=== PATIENT | female | born 1940 | race Caucasian/White ===

== ENCOUNTER → 2017-04-23 | Outpatient (CLI) | payer OTHER ==
[~2017-04-23] MED LIST: AMITRIPTYLINE H50 MG PO; AMITRYPTYLINE PO; AMLODIPINE PO; ASPIRIN ENTERI325 M1 PO; ATIVAN0.5 MG PO; BACTRIM DS TABL1 TA1 PO; FUROSEMIDE40 MG PO; HYDROCODON-ACE1 EACH PO; LASIX PO; LEVOTHYROXINE150 MCG PO; LISINOPRIL10 MG PO; LISINOPRIL20 MG PO; LOPRESSOR PO; MEDI-MECLIZINE25 M1 PO; METFORMIN HCL500 M3 PO; METOPROLOL TAR25 MG PO; NORVASC; PAROXETINE HCL40 M1 PO; PAXIL40 MG PO; PLAVIX PO; POTASSIUM CHLO20 ME1 PO; SIMVASTATIN20 MG PO; SYNTHROID0.15 MG PO; ZOCOR; ZOCOR PO
--- NOTE | ~2017-04-23 | US37 ---
[facility] A Service of [facility] & [facility] RADIOLOGY TEXT RESULTS PATIENT: NATASHA SHEIKH LOCATION: SNIV : 42 UNIT #: [id number] AGE: [address]: Nat Betancourt APRN SEX: F ORDER DR: [id number] [address] [address] [id number] O MR#: [id number] Acc #: [id number] NAME: NATASHA SHEIKH : 1940 SEX: F STUDY DATE/TIME: 04/23/2017 14:49 UNIT: SNIV ROOM: STUDY DESCRIPTION: US Carotid W/Doppler Bilateral Attending Physician: Nat Betancourt A.P.R.N. Referring Physician: Nat Betancourt A.P.R.N. Ordering Physician: Nat Betancourt A.P.R.N. Primary Care Physician: Yobany Mccarthy M.D. MEDICAL IMAGING REPORT This report is preliminary unless electronic signature is present. EXAM Carotid Doppler bilateral 04/23/2017 HISTORY Vertigo, dizziness for 1 week. Memory loss, loss of balance, fainting carotid bruit on physical examination 04/19/2017. Evaluate for carotid stenosis. FINDINGS Palma-scale carotid artery images were obtained as well as Doppler waveform spectral analysis and color flow Doppler imaging. The examination was interpreted according to NASCET criteria. There is no hemodynamically significant stenosis in either internal carotid artery. Peak systolic velocity in the right and left internal carotid arteries was 70 cm/sec and 71 cm/sec respectively. Antegrade blood flow is seen in both vertebral arteries. There is elevated peak systolic velocity in the right and left external carotid arteries measuring 323 cm/sec on the right and 372 cm/sec on the left suggesting degrees of stenosis bilaterally. Mild calcified plaque was seen bilaterally with moderate calcified plaque in the external carotid arteries. IMPRESSION 1. No hemodynamically significant stenosis in either internal carotid artery 2. Antegrade blood flow in both vertebral arteries. 3. Elevated peak systolic velocity in both the right and left external carotid arteries suggesting degrees of stenosis bilaterally. Dictated by... Vicente Nielsen M.D. THIS IS AN ELECTRONICALLY VERIFIED REPORT [facility] A Service of [facility] RADIOLOGY TEXT RESULTS PATIENT: NATASHA SHEIKH LOCATION: [facility] [address] : [address] UNIT #: [id number] AGE: [address]: Nat Betancourt APRN SEX: F ORDER DR: Vicente Nielsen M.D. at 04/26/2017 7:22 AM KRT/rnr TD: 04/24/2017 00:17 JOB #: [id number] MEDICAL IMAGING REPORT Page 1 of 1
--- NOTE | ~2017-04-23 | US84 ---
[id number] [address] [address] [id number] O MR#: [id number] Acc #: [id number] NAME: NATASHA SHEIKH : 1940 SEX: F STUDY DATE/TIME: 04/23/2017 15:22 UNIT: SNIV ROOM: STUDY DESCRIPTION: US LE Veins Complete Aramis Stdy Attending Physician: Nat Betancourt A.P.R.N. Referring Physician: Nat Betancourt A.P.R.N. Ordering Physician: Nat Betancourt A.P.R.N. Primary Care Physician: Yobany Mccarthy M.D. MEDICAL IMAGING REPORT This report is preliminary unless electronic signature is present. EXAM Lower extremity ultrasound for DVT bilateral, 04/23/2017 INDICATIONS Bilateral swelling for a long time according to the patient. No history of prior DVT. Previously was taking Plavix but stopped taking Plavix in June of last year. TECHNIQUE Palma-scale color Doppler and spectral analysis of the lower extremities was performed bilaterally. There are no comparisons. FINDINGS Examination is negative. No DVT in either lower extremity. IMPRESSION Negative study. No DVT in either lower extremity. Dictated by... Frederick Moore M.D. THIS IS AN ELECTRONICALLY VERIFIED REPORT Frederick Moore M.D. at 04/24/2017 2:39 PM Ken TD: 04/23/2017 22:52 JOB #: [id number] MEDICAL IMAGING REPORT Page 1 of 1
== END | disposition home or self-care (01) ==
LOC: SNIV 14:38
DX: R09.89 Other specified symptoms and signs involving the circulatory and respiratory systems (principal); M79.89 Other specified soft tissue disorders
CPT/HCPCS: 93880; 93970

== ENCOUNTER 2017-05-01 22:16 | Emergency (ER) | payer OTHER ==
[~2017-05-01] VITALS: Ht 167.6 cm; Wt 90.8 kg
--- NOTE | ~2017-05-01 | CR71 ---
[facility]. [facility] A Service of [facility] & [facility] RADIOLOGY TEXT RESULTS PATIENT: NATASHA SHEIKH LOCATION: SED : 41 UNIT #: [id number] AGE: [address]: Katie York SEX: F ORDER DR: [id number] [address] [address] [id number] E MR#: [id number] Acc #: [id number] NAME: NATASHA SHEIKH : 1940 SEX: F STUDY DATE/TIME: 05/01/2017 23:28 UNIT: SED ROOM: STUDY DESCRIPTION: CR Chest Single View Attending Physician: Katie York Pa-C Ordering Physician: Staff Doctor Not On Primary Care Physician: Yobany Mccarthy M.D. MEDICAL IMAGING REPORT This report is preliminary unless electronic signature is present. EXAM Chest x-ray 05/01/2017 HISTORY 76-year-old female in the ED complaining of 1-week history of cough, sore throat and shortness of air. FINDINGS AP portable chest x-ray. FINDINGS The examination is markedly limited by x-ray underexposure related to patient body habitus and AP portable technique. Mid and upper lungs are expanded and clear. Mild cardiomegaly is stable. Lung bases are poorly imaged. No significant change since the previous study of 07/05/2016. IMPRESSION 1. Technically limited study as noted above. 2. Stable cardiomegaly. 3. Low lung volumes. Mid and upper lungs are clear. Dictated by... Leonardo Baker M.D. THIS IS AN ELECTRONICALLY VERIFIED REPORT Leonardo Baker M.D. at 05/02/2017 5:26 AM NEILW/chai TD: 05/02/2017 00:25 JOB #: [id number] MEDICAL IMAGING REPORT Page 1 of 1
--- NOTE | ~2017-05-01 | CR63 ---
[facility]. [facility] A Service of [facility] & [facility] RADIOLOGY TEXT RESULTS PATIENT: NATASHA SHEIKH LOCATION: SED : 41 UNIT #: [id number] AGE: [address]: Katie York SEX: F ORDER DR: [id number] [address] [address] [id number] E MR#: [id number] Acc #: [id number] NAME: NATASHA SHEIKH. : 1940 SEX: F STUDY DATE/TIME: 05/02/2017 1:07 UNIT: SED ROOM: STUDY DESCRIPTION: CR Chest 2 View Attending Physician: Katie York Pa-C Ordering Physician: Staff Doctor Not On Primary Care Physician: Yobany Mccarthy M.D. MEDICAL IMAGING REPORT This report is preliminary unless electronic signature is present. EXAM PA and lateral chest 05/02/2017 HISTORY 76-year-old female in the ED complaining of 1-week history of cough, sore throat and shortness of air. TECHNIQUE PA and lateral upright chest series. FINDINGS The exam shows mild infiltrate or atelectasis in both lung bases. Mid and upper lungs are clear. Heart size and pulmonary vascularity are normal. No dense airspace consolidation or pleural effusion. IMPRESSION Mild infiltrate or atelectasis in both lung bases. Dictated by... Leonardo Baker M.D. THIS IS AN ELECTRONICALLY VERIFIED REPORT Leonardo Baker M.D. at 05/02/2017 5:26 AM KORTNEY/chai TD: 05/02/2017 03:35 JOB #: [id number] MEDICAL IMAGING REPORT Page 1 of 1
[2017-05-02 00:26] LABS: BASOPHIL# 0.1 X10e3 (0-0.3); BASOPHIL% 0.8 % (0-2.5); EOSINOPHIL# 0.5 X10e3 (0-0.7); EOSINOPHIL% 4.5 % (0.0-7.0); HEMATOCRIT 36.8 % (35.0-45.0); HEMOGLOBIN 11.9 gm/dL (12.0-16.0); LYMPHOCYTE# 2.1 X10e3 (1.0-3.5); LYMPHOCYTE% 17.4 % (17.0-45.0); MEAN CELL VOLUME 80.2 FL (83-96); MEAN CORPUSCULAR HGB CONC 32.4 g/dL (30-36); MEAN PLATELET VOLUME 8.9 FL (6.5-11.5); MONOCYTE# 0.9 X10e3 (0-1.0); MONOCYTE% 7.8 % (3.0-12.0); NEUTROPHIL# 8.4 X10e3 (1.5-7.1); NEUTROPHIL% 69.5 % (40-75); PLATELET COUNT 273 X10e3 (140-420); RED BLOOD COUNT 4.58 X10e (3.90-5.30); RED CELL DISTRIBUTION WIDTH 15.6 % (11.0-15.5); WHITE BLOOD COUNT 12.1 X10e3 (4.0-10.5)
[2017-05-02 00:31] LABS: DIFF IND NO
[2017-05-02 00:44] LABS: ALBUMIN SERUM 3.2 g/dL (3.5-5.0); BILIRUBIN,TOTAL 0.4 mg/dL (0.2-2.0); BUN/CREATININE RATIO 13.33; CALCIUM SERUM 8.4 mg/dL (8.4-10.2); CREATININE SERUM 0.9 mg/dL (0.6-1.4); GLOM FILT RATE Estimated 62.6 mL/min (>60); POTASSIUM 3.3 mmol/L (3.5-5.1); PROTEIN TOTAL SERUM 7.1 g/dL (6.0-8.3)
== END 2017-05-02 01:58 | disposition home or self-care (01) ==
LOC: SED 22:16
PROVIDERS: Physician Assistant
DX: J18.9 Pneumonia, unspecified organism (principal); I10 Essential (primary) hypertension; Z98.890 Other specified postprocedural states; F17.200 Nicotine dependence, unspecified, uncomplicated; Z88.0 Allergy status to penicillin; Z88.8 Allergy status to other drugs, medicaments and biological substances; Z79.899 Other long term (current) drug therapy
CPT/HCPCS: 36415; 71010; 71020; 80053; 85025; 87651; 94640; 99284